=== PATIENT | male | born 2000 | race Caucasian/White ===

== ENCOUNTER 2019-05-28 20:09 | Emergency (ER) | payer OTHER ==
[2019-05-28 20:17] VITALS: BP 138/84; PULSE 106; TEMP 98.8; BMI 38.7
--- NOTE | 2019-05-28 20:17 | PDOC ---
Rapid Medical Evaluation Time Seen by Provider: 05/28/19 20:12 Medical Evaluation: Allergies Allergy/AdvReac Type Severity Reaction Status Date / Time No Known Allergies Allergy Verified 11/05/15 11:48 05/28/19 20:13 HPI: URI symptoms since this morning went to a clinic and was given Steroids, Nebulizer, Cough Syrup, and Amoxicillin pt did not take anything today PE: No distress ORDERS: Chest X-ray and Nebs Discharge Disposition - Diagnosis URI (upper respiratory infection), Asthma exacerbation - Referrals - Patient Instructions - Post Discharge Activity
[2019-05-28] MEDS ORDERED: ALBUTEROL SO4 2.5/IPRATROPIUM 0.5 INH SOL 3 ML VIAL.NEB. NEB ONE (21:19)
[2019-05-28] MEDS: ALBUTEROL SO4 2.5/IPRATROPIUM 0.5 INH SOL 3 ML VIAL.NEB. NEB SCH ×2 (21:23→21:54)
--- NOTE | 2019-05-28 21:57 | PDOC ---
History of Present Illness - General Chief Complaint: Respiratory Stated Complaint: COLD SYMPTOMS Time Seen by Provider: 05/28/19 20:12 History Source: Patient Exam Limitations: Clinical Condition - History of Present Illness Initial Comments: 05/28/19 21:57 Patient with no significant past medical history present with complaint of 3 days history of persistent cough with yellow treated on, nasal congestion, runny nose and tactile fever with intermittent wheezing. Patient reported he was seen by urgent care earlier today for symptoms and was prescribed amoxicillin antibiotics and steroids for cough as well as advised come to the ED to get a checks x-ray. Patient reports taking [id number]-[id number] medication with minimal improvement. Denies any sick contact or recent travel. Denies any other symptoms Is this a multiple visit Asthma Patient?: No Timing/Duration: other (3 days) Past History - Past Medical History Allergies/Adverse Reactions: Allergies Allergy/AdvReac Type Severity Reaction Status Date / Time No Known Allergies Allergy Verified 05/28/19 20:17 Home Medications: Ambulatory Orders Benzonatate [Tessalon Pearls -] 100 mg PO TID #21 capsule 05/28/19 Ipratropium [place] 2 spray NS BID PRN #1 spray 05/28/19 COPD: No - Immunization History Immunization Up to Date: Yes - Psycho Social/Smoking Cessation Hx Smoking History: Never smoked Hx Alcohol Use: No Drug/Substance Use Hx: No Substance Use Type: None Review of Systems - Review of Systems Able to Perform ROS?: Yes Is the patient limited Welsh proficient: No Constitutional: Yes: Fever (tactile), Malaise HEENTM: Yes: Symptoms Reported, See HPI, Nose Congestion. No: Eye Pain, Blurred Vision, Tearing, Recent change in vision, Double Vision, Cataracts, Ear Pain, Ocular Prothesis, Ear Discharge, Nose Pain, Tinnitus, Nose Bleeding, Hearing Loss, Throat Pain, Throat Swelling, Mouth Pain, Dental Problems, Difficulty Swallowing, Mouth Swelling, Other Respiratory: Yes: Symptoms reported, See HPI, Cough, Wheezing. No: Orthopnea, Shortness of Breath, SOB with Exertion, SOB at Rest, Stridor, Productive cough, Hemoptysis, Other Cardiac (ROS): No: Symptoms Reported, See HPI, Chest Pain, Edema, Irregular Heart Rate, Lightheadedness, Palpitations, Syncope, Chest Tightness, Other ABD/GI: No: Symptoms Reported, Nausea, Vomiting Integumentary: No: Symptoms Reported Neurological: No: Symptoms reported All Other Systems: Reviewed and Negative *Physical Exam - Vital Signs Last Vital Signs Temp Pulse Resp BP Pulse Ox 98.8 F 106 H 20 138/84 95 05/28/19 20:14 05/28/19 20:14 05/28/19 20:14 05/28/19 20:14 05/28/19 20:14 - Physical Exam Comments: 05/28/19 21:53 GENERAL: Well developed, well nourished. Awake and alert. No acute distress. HEENT: Bilateral nasal congestion. Normocephalic, atraumatic. PERRLA, EOMI. No conjunctival pallor. Sclera are non-icteric. Moist mucous membranes. Oropharynx is clear. NECK: Supple. Full ROM. CARDIOVASCULAR: Regular rate and rhythm. No murmurs, rubs, or gallops. Distal pulses are 2+ and symmetric. PULMONARY: No evidence of respiratory distress. Mild expiratory wheeze in the bases. No rales or rhonchi. ABDOMINAL: Soft. Non-tender. Non-distended. No rebound or guarding. No organomegaly. Normoactive bowel sounds. MUSCULOSKELETAL Normal range of motion at all joints. SKIN: Warm and dry. Normal capillary refill. No rashes. NEUROLOGICAL: Alert, awake, appropriate. Gait is normal without ataxia. PSYCHIATRIC: Cooperative. Good eye contact. Appropriate mood General Appearance: Yes: Nourished, Appropriately Dressed. No: Apparent Distress ED Treatment Course - Medications Given in the ED: ED Medications Discontinued Medications Generic Name Dose Route Start Last Admin Trade Name Haroonq PRN Reason Stop Dose Admin Albuterol/Ipratropium 1 amp 05/28/19 20:30 05/28/19 21:23 Duoneb - NEB 05/28/19 21:16 1 amp Q15M RENÉE Administration Medical Decision Making - Medical Decision Making 05/28/19 21:59 Patient with no significant past medical history present with complaint of 3 days history of persistent cough with yellow treated on, nasal congestion, runny nose and tactile fever with intermittent wheezing. Patient reported he was seen by urgent care earlier today for symptoms and was prescribed amoxicillin antibiotics and steroids for cough as well as advised come to the ED to get a checks x-ray. Patient reports taking [id number] medication with minimal improvement. Denies any sick contact or recent travel. Denies any other symptoms Exam significant for mild expiratory wheeze and lung bases without respiratory distress. Patient afebrile. Bilateral nasal congestion on exam. Nebulizer treatment with DuoNeb ordered from triage. Chest x-ray ordered from triage shows no acute infiltrate or chest pathology. Patient symptoms likely upper respiratory infection with sinusitis and advised to continue previsit prescribed medication from urgent care and will add Tessalon Perles as needed for cough and Atrovent nasal spray for nasal congestion with advised to increase fluid intake and follow up with PCP Discharge - Discharge Information Problems reviewed: Yes Clinical Impression/Diagnosis: URI (upper respiratory infection) Qualifiers: URI type: unspecified URI Qualified Code(s): J06.9 - Acute upper respiratory infection, unspecified Sinusitis, acute Qualifiers: Sinusitis location: unspecified location Recurrence: non-recurrent Qualified Code(s): J01.90 - Acute sinusitis, unspecified Condition: Stable Disposition: HOME - Admission No - Additional Discharge Information Prescriptions: Benzonatate [Tessalon Pearls -] 100 mg PO TID #21 capsule Ipratropium [place] 2 spray NS BID PRN #1 spray PRN Reason: nasal congestion - Follow up/Referral Referrals: Meliton Lo MD [Primary Care Provider] - - Patient Discharge Instructions Patient Printed Discharge Instructions: DI for Sinusitis Additional Instructions: Take prescribed medication by urgent care as prescribed for sinus congestion and cough. Use prescribed nasal spray as prescribed for nasal congestion. Increase fluid intake. Follow-up with primary care as needed - Post Discharge Activity
== END 2019-05-28 22:03 | disposition home or self-care (01) ==
LOC: JERFT 20:09
DX: J06.9 Acute upper respiratory infection, unspecified (principal); J01.90 Acute sinusitis, unspecified
CPT/HCPCS: 71046-TC-FY; 99281-25